=== PATIENT | male | born 1975 | race Caucasian/White ===

== ENCOUNTER 2019-06-27 09:55 | Emergency (ER) | payer OTHER, SELFPAY ==
[2019-06-27 09:56] VITALS: BP 137/90; PULSE 77; RESP 16; TEMP 36.2; O2SAT 100; BMI 29.5
[2019-06-27 09:59] VITALS: BP 142/101; PULSE 77; RESP 18; O2SAT 98
--- NOTE | 2019-06-27 10:14 | EKG12_ITS ---
Test Reason : CP Blood Pressure : / mmHG Vent. Rate : 071 BPM Atrial Rate : 071 BPM P-R Int : 108 ms QRS Dur : 078 ms QT Int : 388 ms P-R-T Axes : 010 024 016 degrees QTc Int : 421 ms Sinus rhythm with short AR Otherwise normal ECG Confirmed by JEANNETTE HEATH, KOURTNEY ([id number]), photographic editor APRIL SOLIS ([id number]) on 06/29/2019 12:57:19 PM Referred By: RADHA Confirmed By:KOURTNEY MACHADO MD
--- NOTE | 2019-06-27 10:15 | ED.VIS.GEN ---
History of Present Illness Chief Complaint: Chest Pain Detail of Chief Complaint: Paresthesias, left arm pain Informant: Patient Onset: Weeks Current Severity: Moderate Maximum Severity: Moderate Narrative: Patient presents with complaints of extremity pain and paresthesias. He states that early last week he developed a numb spot on the lateral portion of his right foot. It persisted throughout the week. Late in the week he started noticing some numbness and tingling in both arms, left greater than right. Today he has had pain in the left arm that radiates up into the shoulder and onto the anterior chest wall. No weakness or problems with dropping items. Patient does report a significant family history of heart disease. He has noted increased fatigue with activity recently. - Past Medical History (1) Kidney stones Status: Chronic (2) Back pain Status: Chronic Past Medical History - Allergies and Home Meds Allergies/Adverse Reactions: Allergies No Known Allergies Allergy (Verified 06/27/19 09:59) Primary Care Physician: Scott Rodriguez MD [Primary Care Provider] - As soon as possible Prior records reviewed: Yes Lives: With Family Smoking Status: Current every day smoker Review of Systems General: Denies: Chills, Fever Eyes: Denies: Visual changes - bilaterally ENT: Denies: Bilateral ear pain Cardiovascular: Reports: Chest pain - Left shoulder Respiratory: Denies: Dyspnea, Cough Gastrointestinal: Denies: Abdominal pain, Nausea, Vomiting, Diarrhea Genitourinary: Denies: Dysuria Musculoskeletal: Reports: Extremity Pain. Denies: Swelling Skin: Denies: Rash Neurological: Reports: Parasthesia Endocrine: Denies: Polyuria, Polydipsia Hematologic: Denies: Easy bruising Allergy: Denies: Uticaria Physical Exam Vital Signs/Narrative: Vital Signs Temp Pulse Resp BP Pulse Ox 06/27/19 09:59 77 18 142/101 H 98 06/27/19 09:56 97.1 F L 77 16 137/90 H 100 Inital Vital Signs reviewed: Yes General: Well nourished, Well developed Head: Normocephalic ENT: Moist mucous membranes Neck: Supple Cardiovascular: Regular rate, Regular rhythm Respiratory: No distress, CTA bilaterally, Chest nontender Abdomen: Soft, Nontender Extremities: - - Mild muscular tenderness in the left arm. Full range of motion. Strong distal pulses and normal cap refill. Small area of decreased sensation to light touch over the right proximal fifth metatarsal. Skin: Normal color Neurological: Alert, Oriented x3 Psychological: Normal affect Diagnostic/Tx/Re-eval Impressions Chest X-Ray 06/27/19 10:17 IMPRESSION: No acute abnormality is seen. Electronically Signed: Judd Palmer, at 10:36 EST , Service support , 06/27/19 10:17 Chest 1 View (Portable) [RAD] Stat Laboratory Results 06/27/19 06/27/19 10:04 10:04 WBC 13.2 H RBC 5.30 Hgb 15.7 Hct 47.6 MCV 89.8 MCH 29.6 MCHC 33.0 RDW Std Deviation 44.3 H RDW Coeff of Mena 13.4 Plt Count 282 MPV 9.7 Immature Gran % (Auto) 1.200 H Neut % (Auto) 71.0 H Lymph % (Auto) 19.8 Licking % (Auto) 6.7 Eos % (Auto) 0.8 Baso % (Auto) 0.5 Absolute Neuts (auto) 9.4 H Absolute Lymphs (auto) 2.61 Nucleated RBC % 0 Sodium 140 Potassium 4.3 Chloride 106 Carbon Dioxide 30.0 Anion Gap 4 L BUN 11 Creatinine 0.92 Estim Creat Clear Calc 104.60 Est GFR (MDRD) Af Amer 117 Est GFR (MDRD) Non-Af 97 BUN/Creatinine Ratio 12.0 Glucose 99 Calcium 8.9 Magnesium 1.9 Troponin I < 0.015 - EKG Initial EKG Interpretation: Sinus Rhythm - Sinus at [address] change. - Medical Decision Making Patient was given aspirin on arrival. On repeat evaluation he is resting Delbert. He does still have some pain into his left arm. I advised him at this time I do not see cardiac cause for his symptoms. He does describe having some neck problems. I am concerned he may be having radiculopathy with left side affected greater than right. He will be given anti-inflammatories and muscle relaxers for home. He will follow-up with his primary care physician. Due to his family history I do recommend he follow-up for stress test as was previously discussed with him. He will return for worsening symptoms or concerns. ED Disposition - Plan for ED Patient: Disposition: Home or Assisted Living Diagnosis: Radiculopathy affecting upper extremity Instructions: RADICULOPATHY, Cervical, Paraesthesias Prescriptions: cycloBENZAPRine HCl [Flexeril] 10 mg PO TID PRN #20 tab PRN Reason: Muscle Spasm Transmission Status: Received by [id number] Naproxen [Naprosyn] 500 mg PO BID PRN PRN #20 tab PRN Reason: Pain Score 1-10/10 Transmission Status: Received by [id number] Referrals: Scott Rodriguez MD [Primary Care Provider] - As soon as possible
--- NOTE | 2019-06-27 10:17 | RAD_ITS ---
STUDY: X-RAY CHEST REASON FOR EXAM: Male, 44 years old. Chest pain. TECHNIQUE: Single AP portable view of the chest. COMPARISON: None. FINDINGS: EKG electrodes are seen. The lungs are clear and expanded. There is no demonstrated pleural abnormality. Normal size heart. Normal mediastinum and benji. Normal visualized pulmonary arteries. Normal visualized aortic arch and descending thoracic aorta. Screw and giuseppe fixation in the upper dorsal spine. Normal visualized ribs, clavicles, and shoulders. There is no demonstrated abnormality of the visualized soft tissue structures of the upper abdomen. RAD/Chest 1 View (Portable) IMPRESSION: No acute abnormality is seen. Electronically Signed: Judd Palmer, at 10:36 EST , Service support ,
[2019-06-27 10:22] LABS: Absolute Lymphocyte Count 2.61 X10^3/uL (0.83-4.51); Absolute Neutrophil Count 9.4 X10^3/uL (2.0-7.7); Basophil# 0.07 X10^3/uL; Basophil% 0.5 % (0-1); Eosinophils% 0.8 % (0-5); Hematocrit 47.6 % (40-54); Hemoglobin 15.7 g/dL (13.0-16.5); Lymphocyte # 2.61 X10^3/ul (4.0); Lymphocyte % 19.8 % (19-41); Mean Corpuscular Hgb 29.6 pg (27.0-32.0); Mean Corpuscular Volume 89.8 fL (80-94); Mean Platelet Vol. 9.7 fl (6.2-12.0); Monocyte# 0.89 X10^3/uL; Monocyte% 6.7 % (0-10); NRBC Flagged by Analyzer 0 % (0-5); Neutrophil # 9.38 X10^3/uL (2.7-7.7); Platelet Count 282 K/mm3 (150-450); RBC Distribution Width CV 13.4 % (11.6-14.6); RBC Distribution Width SD 44.3 fl (35.1-43.9); White Blood Count 13.2 K/mm3 (4.4-11.0)
[2019-06-27 10:35] LABS: Anion Gap 4 (5-15); BUN 11 mg/dL (7-18); Calcium,Total 8.9 mg/dL (8.5-10.1); Chloride 106 mmol/L (98-107); Creatinine, Serum 0.92 mg/dL (0.70-1.30); EST Glomerular Filtration Rate 97 mL/min (>60); Est Glom Filt Rate - Afr Amer 117 mL/min (>60); Glucose 99 mg/dL (74-106); Magnesium 1.9 mg/dL (1.6-2.6); Potassium 4.3 mmol/L (3.5-5.1); Sodium Level 140 mmol/L (136-145)
[2019-06-27 10:40] VITALS: O2SAT 98
[2019-06-27] MEDS: Aspirin 81 MG TAB.CHEW 324 MG PO (10:41)
[2019-06-27] MEDS: 0.9% Normal Saline 1,000 ML 150 ML IV (10:41)
[2019-06-27 12:14] VITALS: BP 124/88; PULSE 69; RESP 18; O2SAT 97
== END 2019-06-27 12:44 | disposition home or self-care (01) ==
PROVIDERS: Emergency Provider Emergency Medicine; Family Provider Family Medicine; PCP Family Medicine
DX: M54.12 Radiculopathy, cervical region (principal); F17.200 Nicotine dependence, unspecified, uncomplicated; Z82.49 Family history of ischemic heart disease and other diseases of the circulatory system
CPT/HCPCS: 71045; 80048; 83735; 84484; 85025; 93005; 96360; 96361; 99285; J7030; A4216

== ENCOUNTER → 2025-04-25 | Outpatient (CLI) | payer OTHER, SELFPAY ==
[2025-04-25 18:07] LABS: Hematocrit 42.8 % (40-54); Hemoglobin 14.0 g/dL (13.0-16.5); Immature Granulocytes Count 0.040 X10^3/uL (0.0-0.0); Mean Corp Hgb Conc 32.7 g/dL (32-36); Mean Corpuscular Volume 87.9 fL (80-94); Mean Platelet Vol. 11.0 fl (6.2-12.0); NRBC Flagged by Analyzer 0 % (0-5); Platelet Count 321 K/mm3 (150-450); RBC Distribution Width CV 13.0 % (11.6-14.6); RBC Distribution Width SD 41.9 fl (35.1-43.9); Red Blood Count 4.87 M/mm3 (4.6-6.2); White Blood Count 9.4 K/mm3 (4.4-11.0)
[2025-04-25 18:49] LABS: AST(SGOT) 59 U/L (<=37); Alanine Aminotransfer ALT/SGPT 16 U/L (<=46); Albumin, Serum 4.4 g/dL (3.5-5.0); Alkaline Phosphatase 56 U/L (40-129); Anion Gap 13 (5-15); BUN 11 mg/dL (4-19); BUN/Creat Ratio 12.3 RATIO (10-20); Calcium,Total 9.4 mg/dL (7.6-11.0); Carbon Dioxide 24.6 mmol/L (21.0-32.0); Chloride 102 mmol/L (98-108); Cholesterol 179 mg/dL (<=200); Globulin 2.8 g/dL (2.2-4.2); Glucose 90 mg/dL (70-99); Low Density Lipoprotein Calc. 103 mg/dL; PSA,Total - Annual Screen 1.26 ng/mL (0.02-4.00); Potassium 4.2 mmol/L (3.3-5.1); Triglycerides 107 mg/dL; Very Low Density Lipoprotein 21 mg/dL (5-40); cholesterol:hdl ratio screen 3.27
== END | disposition home or self-care (01) ==
LOC: MTLAB 16:28
PROVIDERS: PCP Nurse Practitioner Family; Referring Provider Nurse Practitioner Family; Visit Provider Nurse Practitioner Family
DX: Z00.01 Encounter for general adult medical examination with abnormal findings (principal); Z12.5 Encounter for screening for malignant neoplasm of prostate
CPT/HCPCS: 36415; 80053; 80061; 84153; 85025; G0103